=== PATIENT | male | born 1955 | race Hispanic/Latino ===

== ENCOUNTER 2022-03-20 05:44 | Emergency (ER) | payer OTHER ==
--- OUTSIDE RECORDS SUMMARY | 2022-03-20 05:47 | XMS REPORT | Continuity of Care Document ---
:1955 Author Organization [facility] t Address [address] [place] [address] Care Team Providers Name Role Phone Pcp, Does Not Have A Primary Care Physician Don Curry Attending Clinician Unavailable MARGARITA Attending Clinician Unavailable Margarita MAYA Attending Clinician Payers Payer Name Policy Type Policy Number Effective Date Expiration Date Anjelica [employer] [id number] 2020 00:00:00 SPRING Problems Condition Condition Condition Status Onset Resolution Last Treating Co mments Source Name Details Category Date Date Treatment Clinician Date No known No known Disease Unive rs active active ity of problems problems [facility] Allergies, Adverse Reactions, Alerts Allergy Allergy Status Severity Reaction(s) Onset Inactive Treating Comm ents Source Name Type Date Date Clinician NO KNOWN Drug Active Univers ALLERGIE Class ity of S [facility] Social History Social Habit Start Date Stop Date Quantity Comments Source Exposure to Not sure [facility] SARS-CoV-2 (event) Medica l Branch Sex Assigned [birth year] [facility] 00:00:00 00:00:00 Medical Branch Smoking Status Start Date Stop Date Source Unknown if ever smoked Universit y of [facility] Medications Ordered Filled Start Stop Current Ordering Indication Dosage Frequency Signature Comments Components Source Medication Medication Date Date Medication? Clinician (SIG) Name Name santo 2021- No .5[in_u 0.5 Inch, Univers n 12-24 s] Left Eye, ity of (ILOTYCIN) 02:30: 01:33 ONCE, 1 Armando as 5 mg/gram 00 :00 dose, On Medica l (0.5 %) Sun12/23/21 Branch ophthalmic at 2130, ointment ANIBAL 0.5 Inch fluorescein 2021- No 1{strip 1 Strip, Univers (FUL-LILLIANA) 12-24 } Left Eye, ity of ophthalmic 00:15: 00:15 ONCE, 1 Armando as strip 1 00 :00 dose, On Medical Strip Sun12/23/21 Branch at 1915, ANIBAL
Fa culty member approving Non-formul geovanna medication : USAMA AVILA
Reason for non-formul geovanna use: SPECIFIC INDICATION FOR NONFORMULA RY PRODUCT tetracaine 2021- No 2[drp] 2 Drop, U nivers (PONTOCAINE 12-24 Left Eye, it y of ) 0.5 % 00:15: 00:15 ONCE, 1 [place] ophthalmic 00 :00 dose, On Medic al drops 2 Sun12/23/21 Branch Drop at 1915, ANIBAL ciprofloxac 2021- Yes [id number] 2[drp] Place 2 Univers in HCl 0.3 12-23 Drops in ity of % opthalmic 00:00: 04:59 left eye 4 [place] drops 00 :00 (four) Medical times Branch daily for 5 days. albuterol Yes 2{puff} Inhale 2 U nivers 90 6-14 Puffs ity of mcg/actuati 00:00: every 4 Armando as on inhaler 00 (four) Medical hours as Branch needed for Wheezing or Shortness of Breath. Immunizations Ordered Filled Immunization Date Status Comments Sour e Immunization Name Name SARS-COV-2 COVID-19 2021-07-01 [facility] PFIZER VACCINE 00:00:00 [facility] SARS-COV-2 COVID-19 2020-11-23 Completed Unive rsity of PFIZER VACCINE 00:00:00 [facility] SARS-COV-2 COVID-19 2020-11-02 Completed Unive rsity of PFIZER VACCINE 00:00:00 [facility] Vital Signs Vital Name Observation Time Observation Value Comments Source Systolic blood 2021-12-24 01:10:00 148 mm[Hg] Univer sity of pressure [facility] Diastolic blood 2021-12-24 01:10:00 81 mm[Hg] Unive rsity of pressure [facility] Heart rate 2021-12-24 01:10:00 61 /min [facility] Respiratory rate 2021-12-24 01:10:00 18 /min [facility] Oxygen saturation in 2021-12-24 01:10:00 98 /min [facility] Arterial blood by [facility] Pulse oximetry [place] Body temperature 2021-12-23 22:45:00 36.67 Martha [facility] height 2021-12-23 22:45:00 165.1 cm [facility] Body weight 2021-12-23 22:45:00 69.854 kg [facility] BMI 2021-12-23 22:45:00 25.63 kg/m2 [facility] Procedures Procedure Date / Time Performed Performing Clinician [facility] e CONSENT/REFUSAL FOR 2021-12-23 22:34:58 Doctor Unassigned, No Un [facility] DIAGNOSIS AND Name [facility] Branch TREATMENT Encounters Start End Encounter Admission Attending Care Care Encounter Source Date/Time Date/Time Type Type Clinicians Facility Department ID 2021-11-08 Outpatient Curry, [facility] [id number] Common 09:54:03 Quirino [facility] 2021-10-19 Outpatient Curry, [facility] [id number] Common 14:39:33 Quirino [facility] 2021-10-19 Out[facility], [facility] [id number] Common 14:38:50 Quirino [facility] 2021-10-19 Outpatient Curry, STLMLC [facility] [id number] Common 14:38:27 Quirino [facility] 2021-10-19 Outpatient Curry, STLMLC [facility] [id number] Common 14:37:15 Quirino [facility] 2021-10-19 Outpatient Curry, STLMLC [facility] [id number] Common 14:08:09 Quirino [id number] [facility] 2021-10-19 Outpatient Curry, STLMLC [facility] [id number] Common 14:02:46 Quirino [id number] [facility] 2021-10-19 Outpatient Curry, STLMLC [facility] [id number] Common 14:02:33 Quirino [id number] [facility] 2021-10-19 Outpatient Curry, STLMLC [facility] Common 14:00:57 Quirino [id number] [facility] 2021-10-19 Outpatient Curry, STLMLC [facility] Common 13:57:29 Quirino [id number] [facility] 2021-10-19 Outpatient Curry, STLMLC [facility] Common 12:53:35 Quirino [id number] [facility] 2021-10-19 Outpatient Curry, STLMLC [facility] Common 12:53:04 Quirino [id number] [facility] 2021-10-19 Outpatient Curry, STLMLC [facility] Common 12:38:40 Quirino [id number] [facility] 2021-10-19 Outpatient STLMLC [facility] Common 12:38:10 [id number] [facility] 2022-03-02 2022-03-02 ambulatory STLMLC [facility] [id number] Common 00:00:00 00:00:00 [facility] 2022-03-02 2022-03-02 ambulatory STLMLC [facility] [id number] Common 00:00:00 00:00:00 [facility] 2022-03-02 2022-03-02 ambulatory STLMLC ST[facility] [id number] Common 00:00:00 00:00:00 [facility] 2021-12-23 2021-12-23 [id number] Univers 17:46:00 20:41:00 USAMA margaritamaría [facility] 2021-12-23 2021-12-23 [facility] [id number] Univers 17:46:00 20:41:00 Usama ALPINE [id number] i ty [facility] [id number] [facility] [id number] [place] [id number] Branch 2021-11-24 2021-11-24 ambulatory STLMLC ST[facility] [id number] Common 00:00:00 00:00:00 [facility] 2021-11-14 2021-11-14 ambulatory STLMLC ST[facility] [id number] Common 00:00:00 00:00:00 [facility] 2021-11-08 2021-11-08 ambulatory STLMLC ST[facility] [id number] Common 00:00:00 00:00:00 [facility] 2021-10-21 2021-10-21 ambulatory STLMLC ST[facility]C [id number] Common 00:00:00 00:00:00 [facility] 2021-10-11 2021-10-11 ambulatory STLMLC ST[facility] [id number] Common 00:00:00 00:00:00 [facility] 2021-07-11 2021-07-11 Outpatient STLMLC ST[facility] [id number] Common 00:00:00 00:00:00 [facility] 2021-06-28 2021-06-28 Outpatient STLMLC ST[facility] [id number] Common 00:00:00 00:00:00 [facility] 2021-04-13 2021-04-13 Outpatient STLMLC ST[facility] [id number] Common 00:00:00 00:00:00 [facility] 2021-04-11 2021-04-11 Outpatient STLMLC ST[facility] [id number] Common 00:00:00 00:00:00 [facility] 2021-01-10 2021-01-10 Outpatient STLMLC [facility] [id number] Common 00:00:00 00:00:00 [facility] 2021-01-10 2021-01-10 Outpatient STLMLC [facility] [id number] Common 00:00:00 00:00:00 [facility] 2020-11-30 2020-11-30 Outpatient STLMLC ST[facility] [id number] Common 00:00:00 00:00:00 [facility] Results This patient has no known results.
--- NOTE | 2022-03-20 09:53 | EDPHYS ---
Physician Documentation [facility] Name: Darrell Gao Age: 66 yrs Sex: Male : 1955 Arrival Date: 03/20/2022 Time: 05:47 Bed 10 Private MD: ED Physician Jason Gao HPI: 03/20 07:41 This 66 yrs old Male presents to ER via Ambulatory with complaints of Fever, rn General Weakness, Headache, Sore Throat, Cough. 07:41 The patient reports fever, not measured (subjective). Onset: The symptoms/episode rn began/occurred 3 day(s) ago. Modifying factors: there are no obvious modifying factors. Associated signs and symptoms: Pertinent positives: chills, cough, headache, myalgias, runny nose, sinus congestion, sinus drainage, sore throat. 07:42 Severity of symptoms: At their worst the symptoms were mild in the emergency department rn the symptoms have improved. Unable to obtain HPI due to. The patient has not experienced similar symptoms in the past. The patient has not recently seen a physician. Pt reports 3-4 days of cough, congestion, runny nose, sinus congestion, headache, chills and myalgias. Overall feeling a little better. NO sob. No sick contacts. . Historical: - Allergies: 07:20 No Known Allergies; iw - PMHx: 07:20 Diabetes - NIDDM; Hypertension; Hypercholesterolemia; iw - Immunization history:: Client reports receiving the 2nd dose of the Covid vaccine. - Social history:: Smoking status: Patient denies any tobacco usage or history of. - Family history:: not pertinent. - Hospitalizations: : No recent hospitalization is reported. ROS: 07:42 Constitutional: + fever and chills Eyes: Negative for injury, pain, redness, and cerner analyst, ENT: + nasal congestion and sore throat Neck: Negative for injury, pain, and swelling, Cardiovascular: Negative for chest pain, palpitations, and edema, Respiratory: + cough Abdomen/GI: Negative for abdominal pain, nausea, vomiting, diarrhea, and constipation, Back: Negative for injury and pain, MS/Extremity: Negative for injury and deformity, Skin: Negative for injury, rash, and discoloration, Neuro: Negative for weakness, numbness, tingling, and seizure. Exam: 07:42 Constitutional: This is a well developed, well nourished patient who is awake, alert, rn and in no acute distress. Ambulatory to room. Head/Face: Normocephalic, atraumatic. Eyes: Pupils equal round and reactive to light, extra-ocular motions intact. ENT: Non-tender cervical LAD, no stridor, MMM Cardiovascular: Regular rate and rhythm. No pulse deficits. Respiratory: No increased work of breathing, no retractions or nasal flaring. Abdomen/GI: Soft, non-tender Skin: Warm, dry with normal turgor. Normal color with no rashes, no lesions, and no evidence of cellulitis. MS/ Extremity: Pulses equal, no cyanosis. Neurovascular intact. Full, normal range of motion. Equal circumference. Neuro: Awake and alert, GCS 15, oriented to person, place, time, and situation. Cranial nerves II-XII grossly intact. Motor strength 5/5 in all extremities. Sensory grossly intact. Cerebellar exam normal. Normal gait. Vital Signs: 07:18 BP 140 / 84; Pulse 64; Resp 16; Temp 98.1; Pulse Ox 100% on R/A; iw MDM: 07:36 Patient medically screened. rn 09:48 Differential diagnosis: viral Infection, bacterial infection, URI. Data reviewed: vital rn signs, nurses notes, lab test result(s), and as a result, I will admit patient. Counseling: I had a detailed discussion with the patient and/or guardian regarding: the historical points, exam findings, and any diagnostic results supporting the discharge/admit diagnosis, lab results, the need for outpatient follow up, to return to the emergency department if symptoms worsen or persist or if there are any questions or concerns that arise at home. Response to treatment: There is no appreciated change of the patient's symptoms at this time, and as a result, I will discharge patient. Special discussion: I discussed with the patient/guardian in detail that at this point there is no indication for admission to the hospital. It is understood, however, that if the symptoms persist or worsen the patient needs to return immediately for re-evaluation. 09:53 ED course: Pt already improving, no oxygen requirement, will dc home with return rn precautions.. 03/20 07:21 Order name: SARS-COV-2 RT PCR (Document "Date of Onset" if Symptomatic) iw 03/20 07:21 Order name: Flu; Complete Time: 09:18 iw 03/20 07:21 Order name: Strep; Complete Time: 09:18 iw 03/20 08:52 Order name: Throat Culture EDMS Administered Medications: No medications were administered Disposition Summary: 03/20/22 09:52 Discharge Ordered Location: Home rn Problem: new rn Symptoms: have improved rn Condition: Stable rn Diagnosis - SARS-associated coronavirus as the cause of diseases classified elsewhere rn Followup: rn - With: Private Physician - When: As needed - Reason: Recheck today's complaints, Re-evaluation by your physician Discharge Instructions: - Discharge Summary Sheet rn - COVID-19 rn - 10 Things You Can Do to Manage Your COVID-19 Symptoms at Home - [facility] rn - Viral Illness, Adult rn Forms: - Medication Reconciliation Form rn - Work release form iw - Thank You Letter rn - Antibiotic cvicu rn - Prescription Opioid Use rn Signatures: Dispatcher [employer] Karen Mac RN RN iw Jason Gao MD MD rn
--- NOTE | 2022-03-20 09:53 | ER ---
Nurse's Notes [facility] [place] Name: Darrell Gao Age: 66 yrs Sex: Male : 1955 Arrival Date: 03/20/2022 Time: 05:47 Bed 10 Private MD: Diagnosis: SARS-associated coronavirus as the cause of diseases classified elsewhere Presentation: 03/20 07:18 Chief complaint: Patient's son or daughter states: sore throat on Sunday, now has body iw weakness, chills, headaches and his stomach is growling, stuffy nose. Coronavirus screen: Client presents with at least one sign or symptom that may indicate coronavirus-19. Ebola Screen: Patient negative for fever greater than or equal to 101.5 degrees Fahrenheit, and additional compatible Ebola Virus Disease symptoms Patient denies exposure to infectious person. Patient denies travel to an Ebola-affected area in the 21 days before illness onset. No symptoms or risks identified at this time. Initial Sepsis Screen: Does the patient meet any 2 criteria? No. Patient's initial sepsis screen is negative. Does the patient have a suspected source of infection? No. Patient's initial sepsis screen is negative. Risk Assessment: Do you want to hurt yourself or someone else? Patient reports no desire to harm self or others. Onset of symptoms was March 17, 2022. 07:18 Method Of Arrival: Ambulatory iw 07:18 Acuity: DANNIE 4 iw Historical: - Allergies: 07:20 No Known Allergies; iw - PMHx: 07:20 Diabetes - NIDDM; Hypertension; Hypercholesterolemia; iw - Immunization history:: Client reports receiving the 2nd dose of the Covid vaccine. - Social history:: Smoking status: Patient denies any tobacco usage or history of. - Family history:: not pertinent. - Hospitalizations: : No recent hospitalization is reported. Vital Signs: 07:18 BP 140 / 84; Pulse 64; Resp 16; Temp 98.1; Pulse Ox 100% on R/A; iw ED Course: 05:47 Patient arrived in ED. bp1 07:20 Triage completed. iw 07:20 Arm band placed on. iw 07:35 Jason Gao MD is Attending Physician. rn 08:36 Karen Perez RN is Primary Nurse. iw Administered Medications: No medications were administered Outcome: 09:52 Discharge ordered by . rn 10:14 Patient left the ED. iw Signatures: Karen Perez RN RN iw Nieto, Roman, MD MD rn [place], Brittany bp1
[2022-03-20 10:38] VITALS: BP 140/84; TEMP 98.1; O2SAT 100
== END 2022-03-20 10:14 | disposition home or self-care (01) ==
LOC: ER 05:44
DX: U07.1 COVID-19 (principal); I10 Essential (primary) hypertension; E11.9 Type 2 diabetes mellitus without complications
CPT/HCPCS: 87070; 87081; 87804 ×2; U0003; 99281

== ENCOUNTER → 2023-11-21 | Emergency (ER) | payer OTHER ==
--- OUTSIDE RECORDS SUMMARY | 2023-11-21 21:20 | XMS REPORT | Continuity of Care Document ---
Author Name Unknown Address [address] [facility] [address] [place] [address] [facility] thconnect Address [address] [facility] [place] [address] Care Team Providers Care Sales Support Advisor Name Role Phone SHARON CURRY Primary Care Physician Unavailab le Sharon Curry Attending Clinician Unavailable YEISON JOHNSON Attending Clinician Unavailable Yeison Rivero Attending Clinician RADIOLOGY Attending Clinician Unavailable Radiology Attending Clinician Unavailable Doctor Unassigned, Freer Attending Clinician U Usama Sauceda Attending Clinician [phone] USAMA AVILA Attending Clinician Unavailable YEISON JOHNSON Admitting Clinician Unavailable SHARON CURRY Admitting Clinician Unavailable ARELI GRUBBS Admitting Clinician Unavailable Payers Payer Name Policy Type Policy Number Effective Date Expirati on Date Source [employer] [place] [id number] 2020 00:00:00 [employer] Replace [id number] 2020 00:00:00 [facility] [employer] Replace C1 [id number] 2020 00:00:00 [facility] Problems Condition Name Condition Details Condition Category Status Onset Date Resolution Date Last Treatment Date Treating Clinician Comments Source [id number] Leg length discrepanc y Problem [facility] [id number] Right sided sciatica Problem [facility] [id number] Decreased hearing, unspecifie d laterality Problem [facility] [id number] Erectile dysfunctio n, unspecifie d erectile dysfunctio n type Problem [facility] Routine eye exam Routine eye exam Problem [facility] [id number] Leukopenia , unspecifie d type Problem [facility] [id number] Mixed hyperlipid emia Problem [facility] [id number] Essential hypertensi on Problem [facility] [id number] Type 2 diabetes mellitus with hyperglyce ruperto, without long-term current use of insulin Problem [facility] [id number] Diabetic polyneurop athy associated with type 2 diabetes mellitus Problem [facility] [id number] Other chronic pain Problem [facility] [id number] Type 2 diabetes mellitus with other diabetic kidney complicati on Problem [facility] No known active problems No known active problems Disease [facility] Allergies, Adverse Reactions, Alerts Allergy Name Allergy Type Status Severity Reaction(s) Onset Date Inactive Date Treating Clinician Comments Source NO KNOWN ALLERGIE S Drug Class Active [facility] Social History Social Habit Start Date Stop Date Quantity Comments Source History of Tobacco Use [facility] Sex Assigned At [facility] Exposure to SARS-CoV-2 (event) 2022-08-13 00:00:00 2022-08-23 09:27:00 Not sure [facility] Smoking Status Start Date Stop Date Source Tobacco smoking consumption unknown [facility] Former Smoker 2023-11-16 00:00:00 2023-11-16 00:00:00 [facility] Medications Ordered Medication Name Filled Medication Name Start Date Stop Date Current Medication? Ordering Clinician Indication Dosage Frequency Signature (SIG) Comments Components Source Ozempic (0.25 or 0.5 MG/DOSE) 2 MG/3ML Ozempic (0.25 or 0.5 MG/DOSE) 2 MG/3ML 4-0 - 00:00: 00 No Ozempic (0.25 or 0.5 MG/DOSE) 2 MG/3ML Ozempic (0.25 or 0.5 MG/DOSE) 2 MG/3ML Ozempic (0.25 or 0.5 MG/DOSE) 2 MG/3ML 4-0 - 00:00: 00 No Ozempic (0.25 or 0.5 MG/DOSE) 2 MG/3ML Ozempic (0.25 or 0.5 MG/DOSE) 2 MG/3ML Ozempic (0.25 or 0.5 MG/DOSE) 2 MG/3ML 4-0 - 00:00: 00 No Ozempic (0.25 or 0.5 MG/DOSE) 2 MG/3ML Victoza 18 MG/3ML Victoza 18 MG/3ML 4-0 1- 00:00: 00 No QD Victoza 18 MG/3ML Victoza 18 MG/3ML Victoza 18 MG/3ML 4-0 1- 00:00: 00 No QD Victoza 18 MG/3ML Victoza 18 MG/3ML Victoza 18 MG/3ML 4-0 1- 00:00: 00 No QD Victoza 18 MG/3ML Victoza 18 MG/3ML Victoza 18 MG/3ML 4-0 1- 00:00: 00 No QD Victoza 18 MG/3ML Sildenafil Citrate 50 MG Sildenafil Citrate 50 MG 2022-09 00:00: 00 No 1{table t_as_ne eded} QD Sildenafil Citrate 50 MG Sildenafil Citrate 50 MG Sildenafil Citrate 50 MG 2022-09 00:00: 00 No 1{table t_as_ne eded} QD Sildenafil Citrate 50 MG Sildenafil Citrate 50 MG Sildenafil Citrate 50 MG 2022-09 00:00: 00 No 1{table t_as_ne eded} QD Sildenafil Citrate 50 MG Sildenafil Citrate 50 MG Sildenafil Citrate 50 MG 2022-09 00:00: 00 No 1{table t_as_ne eded} QD Sildenafil Citrate 50 MG Sildenafil Citrate 50 MG Sildenafil Citrate 50 MG 2022-09 00:00: 00 No 1{table t_as_ne eded} QD Sildenafil Citrate 50 MG Sildenafil Citrate 50 MG Sildenafil Citrate 50 MG 2022-09 00:00: 00 No 1{table t_as_ne eded} QD Sildenafil Citrate 50 MG Sildenafil Citrate 50 MG Sildenafil Citrate 50 MG 2022-09 00:00: 00 No 1{table t_as_ne eded} QD Sildenafil Citrate 50 MG Sildenafil Citrate 50 MG Sildenafil Citrate 50 MG 2022-09 00:00: 00 No 1{table t_as_ne eded} QD Sildenafil Citrate 50 MG Sildenafil Citrate 50 MG Sildenafil Citrate 50 MG 2022-09 00:00: 00 No 1{table t_as_ne eded} QD Sildenafil Citrate 50 MG ibuprofen (IBU) tablet 600 mg 2021-09 15:45: 00 08-23 15:33 :00 No 600mg 600 mg, Oral, ONCE, 1 dose, On Sun08/23/22 at 0945, ANIBAL [facility] benzonatate 100 mg capsule 2021-09 00:00: 00 Yes [id number] 100mg Take 1 capsule by mouth 3 (three) times daily as needed for Cough. [facility] ondansetron 4 mg disintegrat ing tablet 2021-09 00:00: 00 Yes [id number] 4mg Take 1 tablet by mouth every 12 (twelve) hours as needed for Nausea and Vomiting (N/V). [facility] erythromyci n (ILOTYCIN) 5 mg/gram (0.5 %) ophthalmic ointment 0.5 Inch 12-24 02:30: 00 12-24 01:33 :00 No .5[in_u s] 0.5 Inch, Left Eye, ONCE, 1 dose, On Sun12/23/21 at 2130, ANIBAL [facility] fluorescein (FUL-LILLIANA) ophthalmic strip 1 Strip 12-24 00:15: 00 12-24 00:15 :00 No 1{strip } 1 Strip, Left Eye, ONCE, 1 dose, On Sun12/23/21 at 1915, ANIBAL
Fa culty member approving Non-formul geovanna medication : USAMA AVILA
Reason for non-formul geovanna use: SPECIFIC INDICATION FOR NONFORMULA RY PRODUCT [facility] tetracaine (PONTOCAINE ) 0.5 % ophthalmic drops 2 Drop 12-24 00:15: 00 12-24 00:15 :00 No 2[drp] 2 Drop, Left Eye, ONCE, 1 dose, On Sun12/23/21 at 1915, ANIBAL [facility] ciprofloxac in HCl 0.3 % opthalmic drops 12-23 00:00: 00 12-29 04:59 :00 No [id number] 2[drp] Place 2 Drops in left eye 4 (four) times daily for 5 days. [facility] albuterol 90 mcg/actuati on inhaler 03-07 00:00: 00 Yes 2{puff} Inhale 2 Puffs every 4 (four) hours as needed for Wheezing or Shortness of Breath. [facility] albuterol 90 mcg/actuati on inhaler 03-07 00:00: 00 Yes 2{puff} Inhale 2 Puffs every 4 (four) hours as needed for Wheezing or Shortness of Breath. [facility] albuterol 90 mcg/actuati on inhaler 03-07 00:00: 00 Yes 2{puff} Inhale 2 Puffs every 4 (four) hours as needed for Wheezing or Shortness of Breath. [facility] albuterol 90 mcg/actuati on inhaler 03-07 00:00: 00 Yes 2{puff} Inhale 2 Puffs every 4 (four) hours as needed for Wheezing or Shortness of Breath. [facility] albuterol 90 mcg/actuati on inhaler 2016-03-07 00:00: 00 Yes 2{puff} Inhale 2 Puffs every 4 (four) hours as needed for Wheezing or Shortness of Breath. [facility] Bydureon BCise 2 MG/0.85ML Bydureon BCise 2 MG/0.85ML No Bydureon BCise 2 MG/0.85ML Gabapentin 100 MG Gabapentin 100 MG No 1{capsu le} QD Gabapentin 100 MG Losartan Potassium 100 MG Losartan Potassium 100 MG No Losartan Potassium 100 MG Lovastatin 20 MG Lovastatin 20 MG No QD Lovastatin 20 MG metFORMIN HCl 1000 MG metFORMIN HCl 1000 MG No 1{table t_with_ a_meal} QD metFORMIN HCl 1000 MG Losartan Potassium 100 MG Losartan Potassium 100 MG No 1{table t} QD Losartan Potassium 100 MG Bydureon BCise 2 MG/0.85ML Bydureon BCise 2 MG/0.85ML No Bydureon BCise 2 MG/0.85ML Gabapentin 100 MG Gabapentin 100 MG No 1{capsu le} QD Gabapentin 100 MG Losartan Potassium 100 MG Losartan Potassium 100 MG No Losartan Potassium 100 MG Lovastatin 20 MG Lovastatin 20 MG No QD Lovastatin 20 MG metFORMIN HCl 1000 MG metFORMIN HCl 1000 MG No 1{table t_with_ a_meal} QD metFORMIN HCl 1000 MG Losartan Potassium 100 MG Losartan Potassium 100 MG No 1{table t} QD Losartan Potassium 100 MG Gabapentin 100 MG Gabapentin 100 MG No 1{capsu le} QD Gabapentin 100 MG Losartan Potassium 100 MG Losartan Potassium 100 MG No Losartan Potassium 100 MG Losartan Potassium 100 MG Losartan Potassium 100 MG No 1{table t} QD Losartan Potassium 100 MG methylPREDN ISolone 4 MG methylPREDN ISolone 4 MG No methylPRED NISolone 4 MG Lovastatin 20 MG Lovastatin 20 MG No QD Lovastatin 20 MG metFORMIN HCl 1000 MG metFORMIN HCl 1000 MG No 1{table t_with_ a_meal} QD metFORMIN HCl 1000 MG Bydureon BCise 2 MG/0.85ML Bydureon BCise 2 MG/0.85ML No Bydureon BCise 2 MG/0.85ML Gabapentin 100 MG Gabapentin 100 MG No 1{capsu le} QD Gabapentin 100 MG Losartan Potassium 100 MG Losartan Potassium 100 MG No Losartan Potassium 100 MG Losartan Potassium 100 MG Losartan Potassium 100 MG No 1{table t} QD Losartan Potassium 100 MG methylPREDN ISolone 4 MG methylPREDN ISolone 4 MG No methylPRED NISolone 4 MG Lovastatin 20 MG Lovastatin 20 MG No QD Lovastatin 20 MG metFORMIN HCl 1000 MG metFORMIN HCl 1000 MG No 1{table t_with_ a_meal} QD metFORMIN HCl 1000 MG Bydureon BCise 2 MG/0.85ML Bydureon BCise 2 MG/0.85ML No Bydureon BCise 2 MG/0.85ML Gabapentin 100 MG Gabapentin 100 MG No 1{capsu le} QD Gabapentin 100 MG Losartan Potassium 100 MG Losartan Potassium 100 MG No Losartan Potassium 100 MG Losartan Potassium 100 MG Losartan Potassium 100 MG No 1{table t} QD Losartan Potassium 100 MG methylPREDN ISolone 4 MG methylPREDN ISolone 4 MG No methylPRED NISolone 4 MG Lovastatin 20 MG Lovastatin 20 MG No QD Lovastatin 20 MG metFORMIN HCl 1000 MG metFORMIN HCl 1000 MG No 1{table t_with_ a_meal} QD metFORMIN HCl 1000 MG Bydureon BCise 2 MG/0.85ML Bydureon BCise 2 MG/0.85ML No Bydureon BCise 2 MG/0.85ML Gabapentin 100 MG Gabapentin 100 MG No 1{capsu le} QD Gabapentin 100 MG Losartan Potassium 100 MG Losartan Potassium 100 MG No 1{table t} QD Losartan Potassium 100 MG Bydureon BCise 2 MG/0.85ML Bydureon BCise 2 MG/0.85ML No Bydureon BCise 2 MG/0.85ML Lovastatin 20 MG Lovastatin 20 MG No QD Lovastatin 20 MG metFORMIN HCl 1000 MG metFORMIN HCl 1000 MG No 1{table t_with_ a_meal} QD metFORMIN HCl 1000 MG Gabapentin 100 MG Gabapentin 100 MG No 1{capsu le} QD Gabapentin 100 MG Losartan Potassium 100 MG Losartan Potassium 100 MG No 1{table t} QD Losartan Potassium 100 MG Bydureon BCise 2 MG/0.85ML Bydureon BCise 2 MG/0.85ML No Bydureon BCise 2 MG/0.85ML Lovastatin 20 MG Lovastatin 20 MG No QD Lovastatin 20 MG metFORMIN HCl 1000 MG metFORMIN HCl 1000 MG No 1{table t_with_ a_meal} QD metFORMIN HCl 1000 MG Gabapentin 100 MG Gabapentin 100 MG No 1{capsu le} QD Gabapentin 100 MG Losartan Potassium 100 MG Losartan Potassium 100 MG No 1{table t} QD Losartan Potassium 100 MG Bydureon BCise 2 MG/0.85ML Bydureon BCise 2 MG/0.85ML No Bydureon BCise 2 MG/0.85ML Lovastatin 20 MG Lovastatin 20 MG No QD Lovastatin 20 MG metFORMIN HCl 1000 MG metFORMIN HCl 1000 MG No 1{table t_with_ a_meal} QD metFORMIN HCl 1000 MG Lovastatin 20 MG Lovastatin 20 MG No QD Lovastatin 20 MG Bydureon BCise 2 MG/0.85ML Bydureon BCise 2 MG/0.85ML No Bydureon BCise 2 MG/0.85ML Losartan Potassium 100 MG Losartan Potassium 100 MG No Losartan Potassium 100 MG Gabapentin 100 MG Gabapentin 100 MG No Gabapentin 100 MG metFORMIN HCl 1000 MG metFORMIN HCl 1000 MG No metFORMIN HCl 1000 MG Losartan Potassium 100 MG Losartan Potassium 100 MG No Losartan Potassium 100 MG Aspirin Adult Aspirin Adult No Aspirin Adult Bydureon BCise 2 MG/0.85ML Bydureon BCise 2 MG/0.85ML No Bydureon BCise 2 MG/0.85ML metFORMIN HCl 1000 MG metFORMIN HCl 1000 MG No metFORMIN HCl 1000 MG Gabapentin 100 MG Gabapentin 100 MG No Gabapentin 100 MG Lovastatin 20 MG Lovastatin 20 MG No QD Lovastatin 20 MG Losartan Potassium 100 MG Losartan Potassium 100 MG No Losartan Potassium 100 MG Aspirin Adult Aspirin Adult No Aspirin Adult Bydureon BCise 2 MG/0.85ML Bydureon BCise 2 MG/0.85ML No Bydureon BCise 2 MG/0.85ML metFORMIN HCl 1000 MG metFORMIN HCl 1000 MG No metFORMIN HCl 1000 MG Gabapentin 100 MG Gabapentin 100 MG No Gabapentin 100 MG Lovastatin 20 MG Lovastatin 20 MG No QD Lovastatin 20 MG Losartan Potassium 100 MG Losartan Potassium 100 MG No Losartan Potassium 100 MG Losartan Potassium 100 MG Losartan Potassium 100 MG No 1{table t} QD Losartan Potassium 100 MG Lovastatin 20 MG Lovastatin 20 MG No QD Lovastatin 20 MG metFORMIN HCl 1000 MG metFORMIN HCl 1000 MG No metFORMIN HCl 1000 MG metFORMIN HCl 1000 MG metFORMIN HCl 1000 MG No 1{table t_with_ a_meal} QD metFORMIN HCl 1000 MG Gabapentin 100 MG Gabapentin 100 MG No 1{capsu le} QD Gabapentin 100 MG Aspirin Adult Aspirin Adult No Aspirin Adult Bydureon BCise 2 MG/0.85ML Bydureon BCise 2 MG/0.85ML No Bydureon BCise 2 MG/0.85ML Bydureon BCise 2 MG/0.85ML Bydureon BCise 2 MG/0.85ML No Bydureon BCise 2 MG/0.85ML Gabapentin 100 MG Gabapentin 100 MG No Gabapentin 100 MG Aspirin Adult Aspirin Adult No Aspirin Adult Bydureon BCise 2 MG/0.85ML Bydureon BCise 2 MG/0.85ML No Bydureon BCise 2 MG/0.85ML Lovastatin 20 MG Lovastatin 20 MG No Lovastatin 20 MG Gabapentin 100 MG Gabapentin 100 MG No Gabapentin 100 MG Losartan Potassium 100 MG Losartan Potassium 100 MG No 1{table t} QD Losartan Potassium 100 MG Lovastatin 20 MG Lovastatin 20 MG No QD Lovastatin 20 MG Losartan Potassium 100 MG Losartan Potassium 100 MG No Losartan Potassium 100 MG Bydureon BCise 2 MG/0.85ML Bydureon BCise 2 MG/0.85ML No Bydureon BCise 2 MG/0.85ML metFORMIN HCl 1000 MG metFORMIN HCl 1000 MG No 1{table t_with_ a_meal} QD metFORMIN HCl 1000 MG Gabapentin 100 MG Gabapentin 100 MG No 1{capsu le} QD Gabapentin 100 MG metFORMIN HCl 1000 MG metFORMIN HCl 1000 MG No metFORMIN HCl 1000 MG Aspirin Adult Aspirin Adult No Aspirin Adult metFORMIN HCl 1000 MG metFORMIN HCl 1000 MG No 1{table t_with_ a_meal} BID metFORMIN HCl 1000 MG Bydureon BCise 2 MG/0.85ML Bydureon BCise 2 MG/0.85ML No Bydureon BCise 2 MG/0.85ML Lovastatin 20 MG Lovastatin 20 MG No QD Lovastatin 20 MG Gabapentin 100 MG Gabapentin 100 MG No 1{capsu le} QD Gabapentin 100 MG Multi Vitamin - Multi Vitamin - No 1{table t} QD Multi Vitamin - Losartan Potassium 100 MG Losartan Potassium 100 MG No 1{table t} QD Losartan Potassium 100 MG Aspirin Adult Aspirin Adult No Aspirin Adult metFORMIN HCl 1000 MG metFORMIN HCl 1000 MG No 1{table t_with_ a_meal} BID metFORMIN HCl 1000 MG Bydureon BCise 2 MG/0.85ML Bydureon BCise 2 MG/0.85ML No Bydureon BCise 2 MG/0.85ML Lovastatin 20 MG Lovastatin 20 MG No QD Lovastatin 20 MG Gabapentin 100 MG Gabapentin 100 MG No 1{capsu le} QD Gabapentin 100 MG Multi Vitamin - Multi Vitamin - No 1{table t} QD Multi Vitamin - Losartan Potassium 100 MG Losartan Potassium 100 MG No 1{table t} QD Losartan Potassium 100 MG Aspirin Adult Aspirin Adult No Aspirin Adult metFORMIN HCl 1000 MG metFORMIN HCl 1000 MG No 1{table t_with_ a_meal} BID metFORMIN HCl 1000 MG Bydureon BCise 2 MG/0.85ML Bydureon BCise 2 MG/0.85ML No Bydureon BCise 2 MG/0.85ML Lovastatin 20 MG Lovastatin 20 MG No QD Lovastatin 20 MG Gabapentin 100 MG Gabapentin 100 MG No 1{capsu le} QD Gabapentin 100 MG Multi Vitamin - Multi Vitamin - No 1{table t} QD Multi Vitamin - Losartan Potassium 100 MG Losartan Potassium 100 MG No 1{table t} QD Losartan Potassium 100 MG Aspirin Adult Aspirin Adult No Aspirin Adult metFORMIN HCl 1000 MG metFORMIN HCl 1000 MG No 1{table t_with_ a_meal} BID metFORMIN HCl 1000 MG Bydureon BCise 2 MG/0.85ML Bydureon BCise 2 MG/0.85ML No Bydureon BCise 2 MG/0.85ML Lovastatin 20 MG Lovastatin 20 MG No QD Lovastatin 20 MG Gabapentin 100 MG Gabapentin 100 MG No 1{capsu le} QD Gabapentin 100 MG Multi Vitamin - Multi Vitamin - No 1{table t} QD Multi Vitamin - Losartan Potassium 100 MG Losartan Potassium 100 MG No 1{table t} QD Losartan Potassium 100 MG Aspirin Adult Aspirin Adult No Aspirin Adult metFORMIN HCl 1000 MG metFORMIN HCl 1000 MG No 1{table t_with_ a_meal} BID metFORMIN HCl 1000 MG Bydureon BCise 2 MG/0.85ML Bydureon BCise 2 MG/0.85ML No Bydureon BCise 2 MG/0.85ML Lovastatin 20 MG Lovastatin 20 MG No QD Lovastatin 20 MG Gabapentin 100 MG Gabapentin 100 MG No 1{capsu le} QD Gabapentin 100 MG Multi Vitamin - Multi Vitamin - No 1{table t} QD Multi Vitamin - Losartan Potassium 100 MG Losartan Potassium 100 MG No 1{table t} QD Losartan Potassium 100 MG Aspirin Adult Aspirin Adult No Aspirin Adult metFORMIN HCl 1000 MG metFORMIN HCl 1000 MG No 1{table t_with_ a_meal} BID metFORMIN HCl 1000 MG Bydureon BCise 2 MG/0.85ML Bydureon BCise 2 MG/0.85ML No Bydureon BCise 2 MG/0.85ML Lovastatin 20 MG Lovastatin 20 MG No QD Lovastatin 20 MG Gabapentin 100 MG Gabapentin 100 MG No 1{capsu le} QD Gabapentin 100 MG Multi Vitamin - Multi Vitamin - No 1{table t} QD Multi Vitamin - Losartan Potassium 100 MG Losartan Potassium 100 MG No 1{table t} QD Losartan Potassium 100 MG Aspirin Adult Aspirin Adult No Aspirin Adult metFORMIN HCl 1000 MG metFORMIN HCl 1000 MG No 1{table t_with_ a_meal} BID metFORMIN HCl 1000 MG Multi Vitamin - Multi Vitamin - No 1{table t} QD Multi Vitamin - Lovastatin 20 MG Lovastatin 20 MG No QD Lovastatin 20 MG Gabapentin 100 MG Gabapentin 100 MG No 1{capsu le} QD Gabapentin 100 MG Losartan Potassium 100 MG Losartan Potassium 100 MG No 1{table t} QD Losartan Potassium 100 MG Losartan Potassium 100 MG Losartan Potassium 100 MG No 1{table t} QD Losartan Potassium 100 MG Aspirin Adult Aspirin Adult No Aspirin Adult Lovastatin 20 MG Lovastatin 20 MG No QD Lovastatin 20 MG Multi Vitamin - Multi Vitamin - No 1{table t} QD Multi Vitamin - metFORMIN HCl 1000 MG metFORMIN HCl 1000 MG No 1{table t_with_ a_meal} BID metFORMIN HCl 1000 MG Gabapentin 100 MG Gabapentin 100 MG No 1{capsu le} QD Gabapentin 100 MG Losartan Potassium 100 MG Losartan Potassium 100 MG No 1{table t} QD Losartan Potassium 100 MG Aspirin Adult Aspirin Adult No Aspirin Adult Lovastatin 20 MG Lovastatin 20 MG No QD Lovastatin 20 MG Multi Vitamin - Multi Vitamin - No 1{table t} QD Multi Vitamin - metFORMIN HCl 1000 MG metFORMIN HCl 1000 MG No 1{table t_with_ a_meal} BID metFORMIN HCl 1000 MG Gabapentin 100 MG Gabapentin 100 MG No 1{capsu le} QD Gabapentin 100 MG Losartan Potassium 100 MG Losartan Potassium 100 MG No Losartan Potassium 100 MG Gabapentin 100 MG Gabapentin 100 MG No 1{capsu le} QD Gabapentin 100 MG metFORMIN HCl 1000 MG metFORMIN HCl 1000 MG No 1{table t_with_ a_meal} QD metFORMIN HCl 1000 MG Bydureon BCise 2 MG/0.85ML Bydureon BCise 2 MG/0.85ML No Bydureon BCise 2 MG/0.85ML Lovastatin 20 MG Lovastatin 20 MG No QD Lovastatin 20 MG Losartan Potassium 100 MG Losartan Potassium 100 MG No Losartan Potassium 100 MG Gabapentin 100 MG Gabapentin 100 MG No 1{capsu le} QD Gabapentin 100 MG metFORMIN HCl 1000 MG metFORMIN HCl 1000 MG No 1{table t_with_ a_meal} QD metFORMIN HCl 1000 MG Bydureon BCise 2 MG/0.85ML Bydureon BCise 2 MG/0.85ML No Bydureon BCise 2 MG/0.85ML Lovastatin 20 MG Lovastatin 20 MG No QD Lovastatin 20 MG Gabapentin 100 MG Gabapentin 100 MG No 1{capsu le} QD Gabapentin 100 MG Losartan Potassium 100 MG Losartan Potassium 100 MG No 1{table t} QD Losartan Potassium 100 MG metFORMIN HCl 1000 MG metFORMIN HCl 1000 MG No 1{table t_with_ a_meal} QD metFORMIN HCl 1000 MG Losartan Potassium 100 MG Losartan Potassium 100 MG No Losartan Potassium 100 MG Lovastatin 20 MG Lovastatin 20 MG No QD Lovastatin 20 MG Bydureon BCise 2 MG/0.85ML Bydureon BCise 2 MG/0.85ML No Bydureon BCise 2 MG/0.85ML Immunizations Ordered Immunization Name Filled Immunization Name Date Status Comments Source SARS-COV-2 COVID-19 PFIZER VACCINE 2021-07-01 00:00:00 Completed [facility] SARS-COV-2 COVID-19 PFIZER VACCINE 2021-07-01 00:00:00 Completed [facility] SARS-COV-2 COVID-19 PFIZER VACCINE 2021-07-01 00:00:00 Completed [facility] SARS-COV-2 COVID-19 PFIZER VACCINE 2021-07-01 00:00:00 Completed [facility] SARS-COV-2 COVID-19 PFIZER VACCINE 2021-07-01 00:00:00 Completed [facility] FluAD FluAD 2021-06-30 16:29:00 Completed [facility] FluAD FluAD 2021-06-30 16:29:00 Completed [facility] FluAD FluAD 2021-06-30 16:29:00 Completed [facility] FluAD FluAD 2021-06-30 16:29:00 Completed [facility] FluAD FluAD 2021-06-30 16:29:00 Completed [facility] FluAD FluAD 2021-06-30 16:29:00 Completed [facility] FluAD FluAD 2021-06-30 16:29:00 Completed [facility] FluAD FluAD 2021-06-30 16:29:00 Completed [facility] FluAD FluAD 2021-06-30 16:29:00 Completed [facility] FluAD FluAD 2021-06-30 16:29:00 Completed [facility] FluAD FluAD 2021-06-30 16:29:00 Completed [facility] FluAD FluAD 2021-06-30 16:29:00 Completed [facility] FluAD FluAD 2021-06-30 16:29:00 Completed [facility] FluAD FluAD 2021-06-30 16:29:00 Completed [facility] SARS-COV-2 COVID-19 PFIZER VACCINE 2020-11-23 00:00:00 Completed [facility] SARS-COV-2 COVID-19 PFIZER VACCINE 2020-11-23 00:00:00 Completed [facility] SARS-COV-2 COVID-19 PFIZER VACCINE 2020-11-23 00:00:00 Completed [facility] SARS-COV-2 COVID-19 PFIZER VACCINE 2020-11-23 00:00:00 Completed [facility] SARS-COV-2 COVID-19 PFIZER VACCINE 2020-11-23 00:00:00 Completed [facility] SARS-COV-2 COVID-19 PFIZER VACCINE 2020-11-02 00:00:00 Completed [facility] SARS-COV-2 COVID-19 PFIZER VACCINE 2020-11-02 00:00:00 Completed [facility] SARS-COV-2 COVID-19 PFIZER VACCINE 2020-11-02 00:00:00 Completed [facility] SARS-COV-2 COVID-19 PFIZER VACCINE 2020-11-02 00:00:00 Completed [facility] SARS-COV-2 COVID-19 PFIZER VACCINE 2020-11-02 00:00:00 Completed [facility] FluAD FluAD 2020-08-23 15:34:00 Completed [facility] FluAD FluAD 2020-08-23 15:34:00 Completed [facility] FluAD FluAD 2020-08-23 15:34:00 Completed [facility] FluAD FluAD 2020-08-23 15:34:00 Completed [facility] FluAD FluAD 2020-08-23 15:34:00 Completed [facility] FluAD FluAD 2020-08-23 15:34:00 Completed [facility] FluAD FluAD 2020-08-23 15:34:00 Completed [facility] FluAD FluAD 2020-08-23 15:34:00 Completed [facility] FluAD FluAD 2020-08-23 15:34:00 Completed [facility] FluAD FluAD 2020-08-23 15:34:00 Completed [facility] FluAD FluAD 2020-08-23 15:34:00 Completed [facility] FluAD FluAD 2020-08-23 15:34:00 Completed [facility] FluAD FluAD 2020-08-23 15:34:00 Completed [facility] FluAD FluAD 2020-08-23 15:34:00 Completed [facility] FluAD FluAD 2020-08-23 15:34:00 Completed [facility] FluAD FluAD 2020-08-23 15:34:00 Completed [facility] Pneumovax (PPSV23) Pneumovax (PPSV23) 2019-09-23 15:34:00 Completed [facility] Pneumovax (PPSV23) Pneumovax (PPSV23) 2019-09-23 15:34:00 Completed [facility] Pneumovax (PPSV23) Pneumovax (PPSV23) 2019-09-23 15:34:00 Completed [facility] Pneumovax (PPSV23) Pneumovax (PPSV23) 2019-09-23 15:34:00 Completed [facility] Pneumovax (PPSV23) Pneumovax (PPSV23) 2019-09-23 15:34:00 Completed [facility] Pneumovax (PPSV23) Pneumovax (PPSV23) 2019-09-23 15:34:00 Completed [facility] Pneumovax (PPSV23) Pneumovax (PPSV23) 2019-09-23 15:34:00 Completed [facility] Pneumovax (PPSV23) Pneumovax (PPSV23) 2019-09-23 15:34:00 Completed [facility] Pneumovax (PPSV23) Pneumovax (PPSV23) 2019-09-23 15:34:00 Completed [facility] Pneumovax (PPSV23) Pneumovax (PPSV23) 2019-09-23 15:34:00 Completed [facility] Pneumovax (PPSV23) Pneumovax (PPSV23) 2019-09-23 15:34:00 Completed [facility] Pneumovax (PPSV23) Pneumovax (PPSV23) 2019-09-23 15:34:00 Completed [facility] Pneumovax (PPSV23) Pneumovax (PPSV23) 2019-09-23 15:34:00 Completed [facility] Pneumovax (PPSV23) Pneumovax (PPSV23) 2019-09-23 15:34:00 Completed [facility] Pneumovax (PPSV23) Pneumovax (PPSV23) 2019-09-23 15:34:00 Completed [facility] Pneumovax (PPSV23) Pneumovax (PPSV23) 2019-09-23 15:34:00 Completed [facility] FluAD FluAD Unknown Completed [facility] FluAD FluAD Unknown Completed [facility] Pneumovax (PPSV23) Pneumovax (PPSV23) Unknown Completed [facility] FluAD FluAD Unknown Completed [facility] FluAD FluAD Unknown Completed [facility] Pneumovax (PPSV23) Pneumovax (PPSV23) Unknown Completed [facility] FluAD FluAD Unknown Completed [facility] FluAD FluAD Unknown Completed [facility] Pneumovax (PPSV23) Pneumovax (PPSV23) Unknown Completed [facility] FluAD FluAD Unknown Completed [facility] FluAD FluAD Unknown Completed [facility] Pneumovax (PPSV23) Pneumovax (PPSV23) Unknown Completed [facility] FluAD FluAD Unknown Completed [facility] FluAD FluAD Unknown Completed [facility] Pneumovax (PPSV23) Pneumovax (PPSV23) Unknown Completed [facility] FluAD FluAD Unknown Completed [facility] FluAD FluAD Unknown Completed [facility] Pneumovax (PPSV23) Pneumovax (PPSV23) Unknown Completed [facility] FluAD FluAD Unknown Completed [facility] FluAD FluAD Unknown Completed [facility] Pneumovax (PPSV23) Pneumovax (PPSV23) Unknown Completed [facility] FluAD FluAD Unknown Completed [facility] FluAD FluAD Unknown Completed [facility] Pneumovax (PPSV23) Pneumovax (PPSV23) Unknown Completed [facility] FluAD FluAD Unknown Completed [facility] FluAD FluAD Unknown Completed [facility] Pneumovax (PPSV23) Pneumovax (PPSV23) Unknown Completed [facility] Vital Signs Vital Name Observation Time Observation Value Comments Anjelica swan height 2023-11-16 10:00:00 65 [in_i] Commo n [facility] weight 2023-11-16 10:00:00 145.0 [lb_av] Co mmon [facility] temperature 2023-11-16 10:00:00 97.9 [degF] Com [facility] bmi 2023-11-16 10:00:00 24.13 kg/m2 Comm on [facility] oximetry 2023-11-16 10:00:00 97 % Commo n [facility] respiratory rate 2023-11-16 10:00:00 18 /min [facility] blood pressure systolic 2023-11-16 10:00:00 129 mm[Hg] [facility] blood pressure diastolic 2023-11-16 10:00:00 73 mm[Hg] [facility] height 2023-11-16 10:00:00 65 [in_i] Commo n [facility] weight 2023-11-16 10:00:00 145.0 [lb_av] Co mmon [facility] temperature 2023-11-16 10:00:00 97.9 [degF] Com [facility] bmi 2023-11-16 10:00:00 24.13 kg/m2 Comm on [facility] oximetry 2023-11-16 10:00:00 97 % Commo n [facility] respiratory rate 2023-11-16 10:00:00 18 /min [facility] blood pressure systolic 2023-11-16 10:00:00 129 mm[Hg] [facility] blood pressure diastolic 2023-11-16 10:00:00 73 mm[Hg] [facility] height 2023-07-16 09:40:00 65 [in_i] Commo n [facility] weight 2023-07-16 09:40:00 154.4 [lb_av] Co [facility] temperature 2023-07-16 09:40:00 97.6 [degF] Com [facility] bmi 2023-07-16 09:40:00 25.69 kg/m2 Comm on [facility] oximetry 2023-07-16 09:40:00 97 % Commo n [facility] respiratory rate 2023-07-16 09:40:00 16 /min [facility] blood pressure systolic 2023-07-16 09:40:00 128 mm[Hg] [facility] blood pressure diastolic 2023-07-16 09:40:00 76 mm[Hg] [facility] height 2023-04-10 09:30:00 65 [in_i] Commo n [facility] weight 2023-04-10 09:30:00 154.8 [lb_av] Co [facility] temperature 2023-04-10 09:30:00 97.2 [degF] Com [facility] bmi 2023-04-10 09:30:00 25.76 kg/m2 Comm on [facility] oximetry 2023-04-10 09:30:00 96 % Commo n [facility] respiratory rate 2023-04-10 09:30:00 16 /min [facility] blood pressure systolic 2023-04-10 09:30:00 123 mm[Hg] [facility] blood pressure diastolic 2023-04-10 09:30:00 70 mm[Hg] [facility] height 2022-12-07 09:20:00 65 [in_i] Commo n [facility] weight 2022-12-07 09:20:00 153.8 [lb_av] Co mmon [facility] temperature 2022-12-07 09:20:00 97.4 [degF] Com [facility] bmi 2022-12-07 09:20:00 25.59 kg/m2 Comm on [facility] oximetry 2022-12-07 09:20:00 99 % Commo n [facility] respiratory rate 2022-12-07 09:20:00 17 /min [facility] blood pressure systolic 2022-12-07 09:20:00 138 mm[Hg] [facility] blood pressure diastolic 2022-12-07 09:20:00 74 mm[Hg] [facility] height 2022-12-07 09:20:00 65 [in_i] Commo n [facility] weight 2022-12-07 09:20:00 153.8 [lb_av] Co mmon [facility] temperature 2022-12-07 09:20:00 97.4 [degF] Com mon [facility] bmi 2022-12-07 09:20:00 25.59 kg/m2 Comm on [facility] oximetry 2022-12-07 09:20:00 99 % Commo n [facility] respiratory rate 2022-12-07 09:20:00 17 /min [facility] blood pressure systolic 2022-12-07 09:20:00 138 mm[Hg] [facility] blood pressure diastolic 2022-12-07 09:20:00 74 mm[Hg] [facility] Body temperature 2022-08-23 15:27:00 37.89 Martha [facility] Respiratory rate 2022-08-23 15:27:00 18 /min [facility] Body height 2022-08-23 15:27:00 165.1 cm [facility] Body weight 2022-08-23 15:27:00 69.854 kg [facility] BMI 2022-08-23 15:27:00 25.63 kg/m2 [facility] Oxygen saturation in Arterial blood by Pulse oximetry 2022-08-23 15:27:00 97 /min [facility] Systolic blood pressure 2022-08-23 15:27:00 157 mm[Hg] [facility] Diastolic blood pressure 2022-08-23 15:27:00 88 mm[Hg] [facility] Heart rate 2022-08-23 15:27:00 93 /min [facility] height 2022-06-06 09:50:00 65 [in_i] Commo n [facility] weight 2022-06-06 09:50:00 151 [lb_av] Comm on [facility] temperature 2022-06-06 09:50:00 97.6 [degF] Com [facility] bmi 2022-06-06 09:50:00 25.12 kg/m2 Comm on [facility] oximetry 2022-06-06 09:50:00 96 % Commo n [facility] respiratory rate 2022-06-06 09:50:00 16 /min [facility] blood pressure systolic 2022-06-06 09:50:00 135 mm[Hg] [facility] blood pressure diastolic 2022-06-06 09:50:00 75 mm[Hg] [facility] height 2022-05-22 09:00:00 65 [in_i] Commo n [facility] weight 2022-05-22 09:00:00 150.4 [lb_av] Co mmon [facility] temperature 2022-05-22 09:00:00 97.6 [degF] Com [facility] bmi 2022-05-22 09:00:00 25.03 kg/m2 Comm on [facility] oximetry 2022-05-22 09:00:00 99 % Commo n [facility] respiratory rate 2022-05-22 09:00:00 17 /min Common [facility] blood pressure systolic 2022-05-22 09:00:00 140 mm[Hg] [facility] blood pressure diastolic 2022-05-22 09:00:00 82 mm[Hg] [facility] height 2022-03-02 09:10:00 65 [in_i] Commo n [facility] weight 2022-03-02 09:10:00 152.2 [lb_av] Co mmon [facility] temperature 2022-03-02 09:10:00 97.9 [degF] Com [facility] bmi 2022-03-02 09:10:00 25.32 kg/m2 Comm on [facility] oximetry 2022-03-02 09:10:00 97 % Commo n [facility] respiratory rate 2022-03-02 09:10:00 18 /min [facility] blood pressure systolic 2022-03-02 09:10:00 132 mm[Hg] [facility] blood pressure diastolic 2022-03-02 09:10:00 72 mm[Hg] [facility] height 2022-03-02 09:30:00 65 [in_i] Commo n [facility] weight 2022-03-02 09:30:00 152.2 [lb_av] Co mmon [facility] temperature 2022-03-02 09:30:00 97.9 [degF] Com [facility] bmi 2022-03-02 09:30:00 25.32 kg/m2 Comm on [facility] oximetry 2022-03-02 09:30:00 97 % Commo n [facility] respiratory rate 2022-03-02 09:30:00 18 /min [facility] blood pressure systolic 2022-03-02 09:30:00 132 mm[Hg] [facility] blood pressure diastolic 2022-03-02 09:30:00 72 mm[Hg] [facility] Systolic blood pressure 2021-12-24 01:10:00 148 mm[Hg] [facility] Diastolic blood pressure 2021-12-24 01:10:00 81 mm[Hg] [facility] Heart rate 2021-12-24 01:10:00 61 /min [facility] Respiratory rate 2021-12-24 01:10:00 18 /min [facility] Oxygen saturation in Arterial blood by Pulse oximetry 2021-12-24 01:10:00 98 /min [facility] Body temperature 2021-12-23 22:45:00 36.67 Martha [facility] Body height 2021-12-23 22:45:00 165.1 cm [facility] Body weight 2021-12-23 22:45:00 69.854 kg [facility] BMI 2021-12-23 22:45:00 25.63 kg/m2 [facility] height 2021-11-08 08:30:00 65 [in_i] Commo n [facility] weight 2021-11-08 08:30:00 159.6 [lb_av] Co mmon [facility] temperature 2021-11-08 08:30:00 98.1 [degF] Com mon [facility] bmi 2021-11-08 08:30:00 26.56 kg/m2 Comm on [facility] blood pressure systolic 2021-11-08 08:30:00 132 mm[Hg] [facility] blood pressure diastolic 2021-11-08 08:30:00 84 mm[Hg] [facility] height 2021-10-11 16:40:00 65 [in_i] Commo n [facility] weight 2021-10-11 16:40:00 154.3 [lb_av] Co mmon [facility] temperature 2021-10-11 16:40:00 98.4 [degF] Com [facility] bmi 2021-10-11 16:40:00 25.67 kg/m2 Comm on [facility] oximetry 2021-10-11 16:40:00 97 % Commo n [facility] respiratory rate 2021-10-11 16:40:00 17 /min [facility] blood pressure systolic 2021-10-11 16:40:00 131 mm[Hg] [facility] blood pressure diastolic 2021-10-11 16:40:00 67 mm[Hg] Common [facility] temperature 2021-07-11 16:30:00 98.4 [degF] Com [facility] bmi 2021-07-11 16:30:00 26.07 kg/m2 Comm on [facility] oximetry 2021-07-11 16:30:00 97 % Commo n [facility] respiratory rate 2021-07-11 16:30:00 16 /min [facility] blood pressure systolic 2021-07-11 16:30:00 132 mm[Hg] [facility] blood pressure diastolic 2021-07-11 16:30:00 70 mm[Hg] [facility] height 2021-07-11 16:30:00 65 [in_i] Commo n [facility] weight 2021-07-11 16:30:00 156.7 [lb_av] Co mmon [facility] Procedures Procedure Date / Time Performed Performing Clinician Source XR CHEST 1 VW 2022-08-23 16:04:49 Yeison Johnson [facility] RAPID INFLUENZA A/B 2022-08-23 15:33:00 Yeison Johnson [facility] COVID-19 (ID NOW RAPID TESTING) 2022-08-23 15:33:00 Yeison Johnson [facility] CONSENT/REFUSAL FOR DIAGNOSIS AND TREATMENT 2022-08-23 15:22:18 Doctor Unassigned, [place] [facility] US HEAD NECK 2022-06-06 17:24:08 Sharon Curry [facility] ASSIGNMENT OF BENEFITS 2022-06-06 16:00:41 Docto r Unassigned, [place] [facility] XR CLAVICLE COMP RIGHT 2022-05-22 16:14:24 Tahmina Grubbs [facility] NOTICE OF BILLING PRACTICES FOR MEDICARE PATIENTS 2022-05-22 15:55:49 Doctor Unassigned, [facility] PATIENT FINANCIAL POLICY 2022-05-22 15:55:23 Doctor Unassigned, [place] [facility] NO SHOW OR MISSED APPOINTMENT POLICY ACKNOWLEDGEMENT 2022-05-22 15:54:51 Doctor Unassigned, [place] [facility] CONSENT/REFUSAL FOR DIAGNOSIS AND TREATMENT 2022-05-22 15:54:21 Doctor Unassigned, [place] [facility] ASSIGNMENT OF BENEFITS 2022-05-22 15:53:56 Docto r Unassigned, [place]er [facility] CONSENT/REFUSAL FOR DIAGNOSIS AND TREATMENT 2021-12-23 22:34:58 Doctor Unassigned, [place] [facility] Encounters Start Date/Time End Date/Time Encounter Type Admission Type Attending [facility] Care Department Encounter ID Source 2022-09-01 11:10:01 [facility] 2022-08-30 09:59:01 [facility] [id number] 2022-05-18 12:22:01 [facility] [id number] 2021-11-08 09:54:03 [facility] [id number] 2021-10-19 14:39:33 [facility] [id number] [facility] 2021-10-19 14:38:50 Outpatient Curry, Sharon STLMLC [facility] [id number] [facility] 2021-10-19 14:38:27 Outpatient Curry, Sharon STLC STLMLC [id number] [facility] 2021-10-19 14:37:15 Outpatient Curry, Sharon STLC STLML[facility] [id number] [facility] 2021-10-19 14:08:09 Outpatient Curry, Sharon STLC STL[facility] [id number] [facility] 2021-10-19 14:02:46 Outpatient Curry, Sharon STLC STL[facility] [id number] [facility] 2021-10-19 14:02:33 Outpatient Curry, Sharon STLC [facility] [id number] [facility] 2021-10-19 14:00:57 Outpatient Curry, Sharon STLC STL[facility] [id number] [facility] 2021-10-19 13:57:29 Outpatient Curry, Sharon STLC ST[facility] [id number] [facility] 2021-10-19 12:53:35 Outpatient Curry, Sharon STLC STL[facility] [id number] [facility] 2021-10-19 12:53:04 Outpatient Curry, Sharon STLC STLMLC [id number] [facility] 2021-10-19 12:38:40 Outpatient Curry, Sharon STLC STL[facility] [id number] [facility] 2021-10-19 12:38:10 Outpatient STLMLC STLMLC [id number] [facility] 2023-11-16 00:00:00 2023-11-16 00:00:00 OFFICE VISIT ESTAB PT LEVEL 4 STLMLC STLMLC [id number] [facility] 2023-11-16 00:00:00 2023-11-16 00:00:00 SUB ANNUAL MCR WELLNESS VISIT STLMLC STLMLC [id number] [facility] 2023-09-27 00:00:00 2023-09-27 00:00:00 (TEL) STLMLC STLMLC [id number] [facility] 2023-07-16 00:00:00 2023-07-16 00:00:00 OFFICE VISIT ESTAB PT LEVEL 4 STLMLC STLMLC [id number] [facility] 2023-06-19 00:00:00 2023-06-19 00:00:00 (TEL) STLMLC STLMLC [id number] [facility] 2023-04-10 00:00:00 2023-04-10 00:00:00 OFFICE VISIT ESTAB PT LEVEL 4 STLMLC STLMLC [id number] [facility] 2022-12-07 00:00:00 2022-12-07 00:00:00 OFFICE VISIT ESTAB PT LEVEL 4 STLMLC STLMLC [id number] [facility] 2022-12-07 00:00:00 2022-12-07 00:00:00 SUB ANNUAL MCR WELLNESS VISIT STLMLC STLMLC [id number] [facility] 2022-12-07 00:00:00 2022-12-07 00:00:00 (TEL) STLMLC STLMLC [id number] [facility] 2022-09-26 00:00:00 2022-09-26 00:00:00 (TEL) STLMLC STLMLC [id number] [facility] 2022-08-23 09:30:00 2022-08-23 11:13:00 Emergency YEISON DAVIS NHRENAE ERT [id number] [facility] 2022-08-23 09:30:00 2022-08-23 11:13:00 Yeison Snyder [facility] [id number] [facility] 2022-06-06 11:08:22 2022-06-06 23:59:00 Outpatient R [facility] [id number] [facility] 2022-06-06 10:55:00 2022-06-06 23:59:00 Hospital Encounter Radiology [facility] [id number] [facility] 2022-06-06 00:00:00 2022-06-06 00:00:00 OFFICE VISIT ESTAB PT LEVEL 4 STLMLC STLMLC [id number] [facility] 2022-06-06 00:00:00 2022-06-06 00:00:00 Orders Only Doctor Unassigned, [place] [facility] [id number] [facility] 2022-05-30 00:00:00 2022-05-30 00:00:00 (TEL) STLMLC STLMLC [id number] [facility] 2022-05-22 10:53:13 2022-05-22 23:59:00 Outpatient R [facility] [id number] [facility] 2022-05-22 10:53:13 2022-05-22 23:59:00 Hospital Encounter Radiology [facility] [id number] [facility] 2022-05-22 00:00:00 2022-05-22 00:00:00 OFFICE VISIT EST PT LEVEL 3 STLMLC STLMLC [id number] [facility] 2022-05-18 00:00:00 2022-05-18 00:00:00 (TEL) STLMLC STLMLC [id number] [facility] 2022-03-02 00:00:00 2022-03-02 00:00:00 OFFICE VISIT ESTAB PT LEVEL 4 STLMLC STLMLC [id number] [facility] 2022-03-02 00:00:00 2022-03-02 00:00:00 SUB ANNUAL [facility] VISIT STLMLC STLMLC [id number] [facility] 2022-03-02 00:00:00 2022-03-02 00:00:00 (TEL) STLMLC STLMLC [id number] [facility] 2021-12-23 17:46:00 2021-12-23 20:41:00 Emergency Usama Avila [facility] [id number] [facility] 2021-12-23 17:46:00 2021-12-23 20:41:00 Emergency X [facility] ERT [id number] [facility] 2021-11-24 00:00:00 2021-11-24 00:00:00 (TEL) STLMLC STLMLC [id number] [facility] 2021-11-14 00:00:00 2021-11-14 00:00:00 (TEL) STLMLC STLMLC [id number] [facility] 2021-11-08 00:00:00 2021-11-08 00:00:00 (PRODUCTION LINE MECHANIC) New Patient STLMLC STLMLC [id number] [facility] 2021-10-21 00:00:00 2021-10-21 00:00:00 (TEL) STLMLC STLMLC [id number] [facility] 2021-10-11 00:00:00 2021-10-11 00:00:00 OFFICE VISIT ESTAB PT LEVEL 4 STLMLC STLMLC [id number] [facility] 2021-07-11 00:00:00 2021-07-11 00:00:00 OFFICE VISIT ESTAB PT LEVEL 4 STLMLC STLC [id number] [facility] 2021-06-28 00:00:00 2021-06-28 00:00:00 (TEL) STLMLC STLMLC [id number] [facility] 2021-04-13 00:00:00 2021-04-13 00:00:00 Outpatient STLMLC STLMLC [id number] [facility] 2021-04-11 00:00:00 2021-04-11 00:00:00 Outpatient STLMLC STLMLC [id number] [facility] 2021-01-10 00:00:00 2021-01-10 00:00:00 Outpatient STLMLC STLMLC [id number] [facility] 2021-01-10 00:00:00 2021-01-10 00:00:00 Outpatient STLMLC STLMLC [id number] [facility] 2020-11-30 00:00:00 2020-11-30 00:00:00 Outpatient STLMLC STLC [id number] [facility] Results Test Description Test Time Test Comments Results Result Co mments Source HEMOGLOBIN [id number] 00:00:00* Test Item Value Reference Range Interpretation Comme nts HEMOGLOBIN A1c (test code = 4548-4) 7.3 % See_Comment H [Automated [employer]] The system which generated this result transmitted reference range: 4.2-5.6 %. The reference range was not used to interpret this result as normal/abnormal. TSH REFLEX TO FREE [id number] 00:00:00* Test Item Value Reference Range Interpretation Comme nts TSH REFLEX TO FREE T4 (test code = 55741-5) 1.140 UIU/ML See_Comment [Automated [employer]] The system which generated this result transmitted reference range: 0.400-4.100 UIU/ML. The reference range was not used to interpret this result as normal/abnormal. LIPID PANEL WITH REFLEX DIRECT [id number] 00:00:00* Test Item Value Reference Range Interpretation Comme nts CALC LDL CHOL (test code = 01301-4) 83 MG/DL See_Comment [Automated messa ge] The system which generated this result transmitted reference range: <100 MG/DL. The reference range was not used to interpret this result as normal/abnormal. CHOLESTEROL (test code = 2093-3) 173 MG/DL See_Comment [Automated messa ge] The system which generated this result transmitted reference range: <200 MG/DL. The reference range was not used to interpret this result as normal/abnormal. HDL CHOLESTEROL (test code = 2085-9) 65 MG/DL See_Comment [Automated messa ge] The system which generated this result transmitted reference range: >39 MG/DL. The reference range was not used to interpret this result as normal/abnormal. RISK RATIO LDL/HDL (test code = 67408-8) 1.28 RATIO See_Comment [Automated message] The system which generated this result transmitted reference range: <3.55 RATIO. The reference range was not used to interpret this result as normal/abnormal. TRIGLYCERIDES (test code = 2571-8) 151 MG/DL See_Comment H [Automated messa ge] The system which generated this result transmitted reference range: <150 MG/DL. The reference range was not used to interpret this result as normal/abnormal. ALBUMIN/CREATININE RATIO, RANDOM [id number] 00:00:00* Test Item Value Reference Range Interpretation Comme nts ALBUMIN, URINE, RANDOM (test code = 92869-1) 1.7 MG/DL NOT ESTAB MG/DL CALC ALBUMIN/CREAT, RND (test code = 94587-5) 14 MG/G See_Comment [Automated messa ge] The system which generated this result transmitted reference range: <30 MG/G. The reference range was not used to interpret this result as normal/abnormal. CREATININE, URINE, CONC. (test code = 2161-8) 124.6 MG/DL NOT ESTAB MG/DL COMPREHENSIVE METABOLIC [id number] 00:00:00* Test Item Value Reference Range Interpretation Comme nts ALBUMIN (test code = 1751-7) 4.4 G/DL See_Comment [Automated messa ge] The system which generated this result transmitted reference range: 3.5-5.2 G/DL. The reference range was not used to interpret this result as normal/abnormal. ALKALINE PHOSPHATASE (test code = 6768-6) 89 U/L See_Comment [Automated message] The system which generated this result transmitted reference range: 40-125 U/L. The reference range was not used to interpret this result as normal/abnormal. BILIRUBIN, TOTAL (test code = 1975-2) 0.5 MG/DL See_Comment [Automated message] The system which generated this result transmitted reference range: <=1.2 MG/DL. The reference range was not used to interpret this result as normal/abnormal. BUN (test code = 3094-0) 8 MG/DL See_Comment [Automated messa ge] The system which generated this result transmitted reference range: 8-23 MG/DL. The reference range was not used to interpret this result as normal/abnormal. CALCIUM (test code = 25965-4) 9.5 MG/DL See_Comment [Automated messa ge] The system which generated this result transmitted reference range: 8.5-10.5 MG/DL. The reference range was not used to interpret this result as normal/abnormal. CALC A/G RATIO (test code = 1759-0) 1.4 RATIO See_Comment [Automated messa ge] The system which generated this result transmitted reference range: 1.0-2.6 RATIO. The reference range was not used to interpret this result as normal/abnormal. CALC BUN/CREAT (test code = 3097-3) 14 RATIO See_Comment [Automated messa ge] The system which generated this result transmitted reference range: 6-28 RATIO. The reference range was not used to interpret this result as normal/abnormal. CALC GLOBULIN (test code = 82705-4) 3.1 G/DL See_Comment [Automated messa ge] The system which generated this result transmitted reference range: 1.9-3.7 G/DL. The reference range was not used to interpret this result as normal/abnormal. CARBON DIOXIDE (test code = 1963-8) 24 MEQ/L See_Comment [Automated messa ge] The system which generated this result transmitted reference range: 19-31 MEQ/L. The reference range was not used to interpret this result as normal/abnormal. CHLORIDE (test code = 2075-0) 104 MEQ/L See_Comment [Automated messa ge] The system which generated this result transmitted reference range: 95-107 MEQ/L. The reference range was not used to interpret this result as normal/abnormal. CREATININE (test code = 2160-0) 0.59 MG/DL See_Comment L [Automated messa ge] The system which generated this result transmitted reference range: 0.80-1.40 MG/DL. The reference range was not used to interpret this result as normal/abnormal. eGFR (2020 CKD-EPI) (test code = 16322-8) 106 ML/MIN/1.73 See_Comment [Automated message] The system which generated this result transmitted reference range: >60 ML/MIN/1.73. The reference range was not used to interpret this result as normal/abnormal. GLUCOSE (test code = 1558-6) 139 MG/DL See_Comment H [Automated messa ge] The system which generated this result transmitted reference range: 70-99 MG/DL. The reference range was not used to interpret this result as normal/abnormal. POTASSIUM (test code = 2823-3) 4.6 MEQ/L See_Comment [Automated messa ge] The system which generated this result transmitted reference range: 3.5-5.4 MEQ/L. The reference range was not used to interpret this result as normal/abnormal. PROTEIN, TOTAL (test code = 2885-2) 7.5 G/DL See_Comment [Automated messa ge] The system which generated this result transmitted reference range: 6.1-8.3 G/DL. The reference range was not used to interpret this result as normal/abnormal. AST (test code = 1920-8) 26 U/L See_Comment [Automated messa ge] The system which generated this result transmitted reference range: 9-50 U/L. The reference range was not used to interpret this result as normal/abnormal. ALT (test code = 1742-6) 27 U/L See_Comment [Automated messa ge] The system which generated this result transmitted reference range: 5-50 U/L. The reference range was not used to interpret this result as normal/abnormal. SODIUM (test code = 2951-2) 139 MEQ/L See_Comment [Automated messa ge] The system which generated this result transmitted reference range: 133-146 MEQ/L. The reference range was not used to interpret this result as normal/abnormal. CBC W/AUTO [id number] 00:00:00* Test Item Value Reference Range Interpretation Comme nts NUCLEATED RBCS (test code = 36158-7) 0.0 /100 WBC'S See_Comment [Automated messa ge] The system which generated this result transmitted reference range: 0.0 /100 WBC'S. The reference range was not used to interpret this result as normal/abnormal. ABSOLUTE EOSINOPHILS (test code = 87383-4) 0.21 K/UL See_Comment [Automated messa ge] The system which generated this result transmitted reference range: 0.00-0.50 K/UL. The reference range was not used to interpret this result as normal/abnormal. ABSOLUTE LYMPHOCYTES (test code = 31010-4) 1.59 K/UL See_Comment [Automated messa ge] The system which generated this result transmitted reference range: 1.00-4.00 K/UL. The reference range was not used to interpret this result as normal/abnormal. ABSOLUTE MONOCYTES (test code = 50298-2) 0.45 K/UL See_Comment [Automated messa ge] The system which generated this result transmitted reference range: 0.20-1.00 K/UL. The reference range was not used to interpret this result as normal/abnormal. ABSOLUTE NEUTROPHILS (test code = 35165-2) 1.79 K/UL See_Comment [Automated messa ge] The system which generated this result transmitted reference range: 1.50-7.50 K/UL. The reference range was not used to interpret this result as normal/abnormal. BASOPHILS (test code = 01757-2) 0.7 % EOSINOPHILS (test code = 07788-0) 5.2 % HEMATOCRIT (test code = 94746-4) 42.8 % See_Comment [Automated messa ge] The system which generated this result transmitted reference range: 40.0-51.0 %. The reference range was not used to interpret this result as normal/abnormal. HEMOGLOBIN (test code = 718-7) 15.0 G/DL See_Comment [Automated messa ge] The system which generated this result transmitted reference range: 13.5-17.0 G/DL. The reference range was not used to interpret this result as normal/abnormal. LYMPHOCYTES (test code = 14113-9) 39.1 % MCH (test code = 20379-1) 32.5 PG See_Comment [Automated messa ge] The system which generated this result transmitted reference range: 25.0-33.0 PG. The reference range was not used to interpret this result as normal/abnormal. MCHC (test code = 64274-4) 35.0 G/DL See_Comment [Automated messa ge] The system which generated this result transmitted reference range: 31.0-36.0 G/DL. The reference range was not used to interpret this result as normal/abnormal. MCV (test code = 46946-4) 92.8 fL See_Comment [Automated messa ge] The system which generated this result transmitted reference range: 80.0-99.0 fL. The reference range was not used to interpret this result as normal/abnormal. MONOCYTES (test code = 61627-7) 11.1 % NEUTROPHILS (test code = 42025-1) 43.9 % PLATELET COUNT (test code = 76856-2) 231 K/UL See_Comment [Automated messa ge] The system which generated this result transmitted reference range: 130-400 K/UL. The reference range was not used to interpret this result as normal/abnormal. RBC (test code = 86174-5) 4.61 M/UL See_Comment [Automated messa ge] The system which generated this result transmitted reference range: 4.50-6.10 M/UL. The reference range was not used to interpret this result as normal/abnormal. RDW (test code = 67616-3) 12.8 % See_Comment [Automated messa ge] The system which generated this result transmitted reference range: 11.5-15.0 %. The reference range was not used to interpret this result as normal/abnormal. WBC (test code = 57721-8) 4.1 K/UL See_Comment [Automated messa ge] The system which generated this result transmitted reference range: 3.5-11.0 K/UL. The reference range was not used to interpret this result as normal/abnormal. PSA W/REFLEX TO FREE [id number] 00:00:00* Test Item Value Reference Range Interpretation Comme nts PROSTATE SPECIFIC AG (test code = 36452-2) 0.37 NG/ML See_Comment [Automated messa ge] The system which generated this result transmitted reference range: <=4.00 NG/ML. The reference range was not used to interpret this result as normal/abnormal. HEMOGLOBIN [id number] 00:00:00* Test Item Value Reference Range Interpretation Comme nts HEMOGLOBIN A1c (test code = 4548-4) 7.3 % See_Comment H [Automated messa ge] The system which generated this result transmitted reference range: 4.2-5.6 %. The reference range was not used to interpret this result as normal/abnormal. LIPID PANEL WITH REFLEX DIRECT [id number] 00:00:00* Test Item Value Reference Range Interpretation Comme nts CALC LDL CHOL (test code = 99870-7) 91 MG/DL See_Comment [Automated ServiceNowa ge] The system which generated this result transmitted reference range: <100 MG/DL. The reference range was not used to interpret this result as normal/abnormal. CHOLESTEROL (test code = 2093-3) 184 MG/DL See_Comment [Automated ServiceNowa ge] The system which generated this result transmitted reference range: <200 MG/DL. The reference range was not used to interpret this result as normal/abnormal. HDL CHOLESTEROL (test code = 2085-9) 70 MG/DL See_Comment [Automated Service[employer] ge] The system which generated this result transmitted reference range: >39 MG/DL. The reference range was not used to interpret this result as normal/abnormal. RISK RATIO LDL/HDL (test code = 60543-0) 1.30 RATIO See_Comment [Automated message] The system which generated this result transmitted reference range: <3.55 RATIO. The reference range was not used to interpret this result as normal/abnormal. TRIGLYCERIDES (test code = 2571-8) 126 MG/DL See_Comment [Automated ServiceNowa ge] The system which generated this result transmitted reference range: <150 MG/DL. The reference range was not used to interpret this result as normal/abnormal. ALBUMIN/CREATININE RATIO, RANDOM [id number] 00:00:00* Test Item Value Reference Range Interpretation Comme nts ALBUMIN, URINE, RANDOM (test code = 90493-5) 1.8 MG/DL NOT ESTAB MG/DL CALC ALBUMIN/CREAT, RND (test code = 99722-2) 9 MG/G See_Comment [Automated messa ge] The system which generated this result transmitted reference range: <30 MG/G. The reference range was not used to interpret this result as normal/abnormal. CREATININE, URINE, CONC. (test code = 2161-8) 199.2 MG/DL NOT ESTAB MG/DL COMPREHENSIVE METABOLIC [id number] 00:00:00* Test Item Value Reference Range Interpretation Comme nts ALBUMIN (test code = 1751-7) 4.7 G/DL See_Comment [Automated ServiceNowa ge] The system which generated this result transmitted reference range: 3.5-5.2 G/DL. The reference range was not used to interpret this result as normal/abnormal. ALKALINE PHOSPHATASE (test code = 6768-6) 78 U/L See_Comment [Automated message] The system which generated this result transmitted reference range: 40-125 U/L. The reference range was not used to interpret this result as normal/abnormal. BILIRUBIN, TOTAL (test code = 1975-2) 0.6 MG/DL See_Comment [Automated message] The system which generated this result transmitted reference range: <=1.2 MG/DL. The reference range was not used to interpret this result as normal/abnormal. BUN (test code = 3094-0) 11 MG/DL See_Comment [Automated messa ge] The system which generated this result transmitted reference range: 8-23 MG/DL. The reference range was not used to interpret this result as normal/abnormal. CALCIUM (test code = 96192-5) 9.5 MG/DL See_Comment [Automated ServiceNowa ge] The system which generated this result transmitted reference range: 8.5-10.5 MG/DL. The reference range was not used to interpret this result as normal/abnormal. CALC A/G RATIO (test code = 1759-0) 1.7 RATIO See_Comment [Automated ServiceNowa ge] The system which generated this result transmitted reference range: 1.0-2.6 RATIO. The reference range was not used to interpret this result as normal/abnormal. CALC BUN/CREAT (test code = 3097-3) 16 RATIO See_Comment [Automated ServiceNowa ge] The system which generated this result transmitted reference range: 6-28 RATIO. The reference range was not used to interpret this result as normal/abnormal. CALC GLOBULIN (test code = 18898-1) 2.8 G/DL See_Comment [Automated messa ge] The system which generated this result transmitted reference range: 1.9-3.7 G/DL. The reference range was not used to interpret this result as normal/abnormal. CARBON DIOXIDE (test code = 1962-8) 27 MEQ/L See_Comment [Automated messa ge] The system which generated this result transmitted reference range: 19-31 MEQ/L. The reference range was not used to interpret this result as normal/abnormal. CHLORIDE (test code = 2074-0) 101 MEQ/L See_Comment [Automated messa ge] The system which generated this result transmitted reference range: 95-107 MEQ/L. The reference range was not used to interpret this result as normal/abnormal. CREATININE (test code = 216-0) 0.70 MG/DL See_Comment L [Automated messa ge] The system which generated this result transmitted reference range: 0.80-1.40 MG/DL. The reference range was not used to interpret this result as normal/abnormal. eGFR (2020 CKD-EPI) (test code = 81261-0) 101 ML/MIN/1.73 See_Comment [Automated message] The system which generated this result transmitted reference range: >60 ML/MIN/1.73. The reference range was not used to interpret this result as normal/abnormal. GLUCOSE (test code = 1558-6) 154 MG/DL See_Comment H [Automated messa ge] The system which generated this result transmitted reference range: 70-99 MG/DL. The reference range was not used to interpret this result as normal/abnormal. POTASSIUM (test code = 2823-3) 5.0 MEQ/L See_Comment [Automated messa ge] The system which generated this result transmitted reference range: 3.5-5.4 MEQ/L. The reference range was not used to interpret this result as normal/abnormal. PROTEIN, TOTAL (test code = 2885-2) 7.5 G/DL See_Comment [Automated messa ge] The system which generated this result transmitted reference range: 6.1-8.3 G/DL. The reference range was not used to interpret this result as normal/abnormal. AST (test code = 1920-8) 27 U/L See_Comment [Automated messa ge] The system which generated this result transmitted reference range: 9-50 U/L. The reference range was not used to interpret this result as normal/abnormal. ALT (test code = 1742-6) 29 U/L See_Comment [Automated Service[employer]] The system which generated this result transmitted reference range: 5-50 U/L. The reference range was not used to interpret this result as normal/abnormal. SODIUM (test code = 2951-2) 139 MEQ/L See_Comment [Automated [employer]] The system which generated this result transmitted reference range: 133-146 MEQ/L. The reference range was not used to interpret this result as normal/abnormal.
--- NOTE | 2023-11-21 23:01 | ER ---
Nurse's Notes [facility] Name: Darrell Gao Age: 68 yrs Sex: Male : 1955 Arrival Date: 11/21/2023 Time: 21:15 Bed DX3 Private MD: Diagnosis: Acute laryngitis Presentation: 11/21 21:28 Chief complaint: Patient states: My voice became hoarse yesterday. No fever and no vc1 pain. Coronavirus screen: At this time, the client does not indicate any symptoms associated with coronavirus-19. Ebola Screen: Patient negative for fever greater than or equal to 101.5 degrees Fahrenheit, and additional compatible Ebola Virus Disease symptoms Patient denies exposure to infectious person. Patient denies travel to an Ebola-affected area in the 21 days before illness onset. No symptoms or risks identified at this time. Initial Sepsis Screen: Does the patient meet any 2 criteria? No. Patient's initial sepsis screen is negative. Does the patient have a suspected source of infection? No. Patient's initial sepsis screen is negative. Risk Assessment: Do you want to hurt yourself or someone else? Patient reports no desire to harm self or others. Onset of symptoms was November 20, 2023. 21:28 Method Of Arrival: Ambulatory vc1 21:28 Acuity: DANNIE 4 vc1 Triage Assessment: 21:30 General: Appears in no apparent distress. comfortable, Behavior is calm, cooperative, vc1 appropriate for age. Pain: Denies pain. EENT: Throat is clear Reports hoarse voice, . Neuro: Level of Consciousness is awake, alert, obeys commands, Oriented to person, place, time, situation, Appropriate for age. Cardiovascular: No deficits noted. Respiratory: Reports cough that is chest congestion Airway is patent Respiratory effort is even, unlabored, Respiratory pattern is regular, symmetrical. GI: No deficits noted. No signs and/or symptoms were reported involving the gastrointestinal system. : No deficits noted. No signs and/or symptoms were reported regarding the genitourinary system. Derm: No deficits noted. No signs and/or symptoms reported regarding the dermatologic system. Musculoskeletal: No deficits noted. No signs and/or symptoms reported regarding the musculoskeletal system. Historical: - Allergies: 21:30 No Known Allergies; vc1 - Home Meds: 21:30 bp medication [Active]; dm medication [Active]; vc1 - PMHx: 21:30 Diabetes - NIDDM; Hypercholesterolemia; Hypertension; vc1 - PSHx: 21:30 None; vc1 - Immunization history:: Flu vaccine status is unknown. - Social history:: Smoking status: Patient denies any tobacco usage or history of. Screenin:05 [facility] ED Fall Risk Assessment (Adult) History of falling in the last 3 months, vc1 including since admission No falls in past 3 months (0 pts) Confusion or Disorientation No (0 pts) Intoxicated or Sedated No (0 pts) Impaired Gait No (0 pts) Mobility Assist Device Used No (0 pt) Altered Elimination No (0 pt) Score/Fall Risk Level 0 - 2 = Low Risk Oriented to surroundings, Maintained a safe environment, Educated pt \T\ family on fall prevention, incl call for assistance when getting out of bed. Abuse screen: Denies threats or abuse. Nutritional screening: No deficits noted. Tuberculosis screening: No symptoms or risk factors identified. Assessment: 21:30 Respiratory: Airway is patent Respiratory effort is even, unlabored, Respiratory vc1 pattern is regular, symmetrical, Breath sounds are clear. 23:06 General: See triage assessment. vc1 Vital Signs: 21:28 BP 177 / 95; Pulse 80; Resp 20; Temp 97.7; Pulse Ox 99% ; Weight 68.95 kg; Height 5 ft. vc1 5 in. ; Pain 0/10; 21:28 Body Mass Index 25.29 (68.95 kg, 165.1 cm) vc1 21:28 Pain Scale: Adult vc1 ED Course: 21:21 Patient arrived in ED. ae5 21:22 Princess Lawson FNP-C is PHCP. kb 21:22 Yash Rosa MD is Attending Physician. kb 21:25 Patient has correct armband on for positive identification. placed back in lobby. vc1 21:25 Provided Education on: buy Chloraseptic spray. vc1 21:30 Triage completed. vc1 21:30 Arm band placed on right wrist. vc1 21:58 Strep Sent. rv 23:06 No provider procedures requiring assistance completed. Patient did not have IV access vc1 during this emergency room visit. Administered Medications: No medications were administered Medication: 23:06 VIS not applicable for this client. vc1 Outcome: 23:00 Discharge ordered by MD. cox 23:06 Discharged to home ambulatory, vc1 23:06 Condition: good 23:06 Discharge instructions given to patient, Instructed on discharge instructions, follow up and referral plans. Demonstrated understanding of instructions, follow-up care, 23:08 Patient left the ED. vc1 Signatures: Princess Lawson, DIESEL AUTOMOTIVE TECHNICIAN-C DIESEL AUTOMOTIVE TECHNICIAN-Cuong Gilman RN RN rv Neelima Alegre RN RN vc1 Gabbie Cunha ae5
--- NOTE | 2023-11-21 23:01 | EDPHYS ---
Physician Documentation [facility] Name: Darrell Gao Age: 68 yrs Sex: Male : 1955 Arrival Date: 11/21/2023 Time: 21:15 Bed DX3 Private MD: ED Physician Yash Rosa HPI: 11/21 22:54 This 68 yrs old Male presents to ER via Ambulatory with complaints of Sore kb Throat. 22:54 Patient is a 68-year-old male who presents with hoarseness that started yesterday. kb Denies sore throat, cough, congestion, fever, chills, body aches. Historical: - Allergies: 21:30 No Known Allergies; vc1 - Home Meds: 21:30 bp medication [Active]; dm medication [Active]; vc1 - PMHx: 21:30 Diabetes - NIDDM; Hypercholesterolemia; Hypertension; vc1 - PSHx: 21:30 None; vc1 - Immunization history:: Flu vaccine status is unknown. - Social history:: Smoking status: Patient denies any tobacco usage or history of. ROS: 22:54 Constitutional: Negative for fever, chills, and weight loss, kb 22:54 ENT: Positive for hoarseness, 22:54 All other systems are negative, Exam: 22:54 Constitutional: This is a well developed, well nourished patient who is awake, alert, kb and in no acute distress. Head/Face: Normocephalic, atraumatic. ENT: Moist Mucous membranes Cardiovascular: Regular rate Respiratory: Respirations even and unlabored. No increased work of breathing. Talking in full sentences Abdomen/GI: Soft, non-tender. No distention Skin: Warm, dry with normal turgor. Normal color. MS/ Extremity: Pulses equal, no cyanosis. Neurovascular intact. Full, normal range of motion. Neuro: Awake and alert, GCS 15, oriented to person, place, time, and situation. Moves all extremities. Normal gait. 22:54 ENT: Posterior pharynx: is normal, Vital Signs: 21:28 BP 177 / 95; Pulse 80; Resp 20; Temp 97.7; Pulse Ox 99% ; Weight 68.95 kg; Height 5 ft. vc1 5 in. ; Pain 0/10; 21:28 Body Mass Index 25.29 (68.95 kg, 165.1 cm) vc1 21:28 Pain Scale: Adult vc1 MDM: 21:22 Patient medically screened. kb 22:55 Differential diagnosis: Strep, pharyngitis, laryngitis. Data reviewed: vital signs, kb nurses notes. Counseling: I had a detailed discussion with the patient and/or guardian regarding the historical points, exam findings, and any diagnostic results supporting the discharge/admit diagnosis, lab results, the need for outpatient follow up, a family practitioner, to return to the emergency department if symptoms worsen or persist or if there are any questions or concerns that arise at home. 11/21 21:30 Order name: Strep; Complete Time: 22:59 kb 11/21 23:00 Order name: Throat Culture EDMS Administered Medications: No medications were administered Disposition: 23:56 Co-signature as Attending Physician, Yash Rosa MD I agree with the assessment sp4 and plan of care. I reviewed the patient's care provided by the Advanced Practice Provider and agree with the diagnosis and treatment plan. Disposition Summary: 11/21/23 23:00 Discharge Ordered Notes: Location: Home kb Condition: Stable kb Diagnosis - Acute laryngitis kb Followup: kb - With: Emergency Department - When: As needed - Reason: Worsening of condition Followup: kb - With: Private Physician - When: 2 - 3 days - Reason: Recheck today's complaints, Continuance of care, Re-evaluation by your physician Discharge Instructions: - Discharge Summary Sheet kb - Laryngitis, [id number] kb Forms: - Medication Reconciliation Form kb - Thank You Letter kb - Antibiotic Education kb - Prescription Opioid Use kb - Patient Portal Instructions kb - Leadership Thank You Letter kb Signatures: Dispatcher [employer] EDPrincess Vinson FNP-C FNP-Ckb Calcote, Vanessa, RN RN Yash Lomeli MD MD sp4
[2023-11-21 23:53] VITALS: BP 177/95; TEMP 97.7; O2SAT 99
== END ==
LOC: ER 21:15
DX: J04.0 Acute laryngitis (principal); E11.9 Type 2 diabetes mellitus without complications; I10 Essential (primary) hypertension
CPT/HCPCS: 87070; 87081